=== PATIENT | female | born 1990 | race American Indian/Alaskan Native ===

== ENCOUNTER 2017-10-06 12:09 | Outpatient (CLI) | payer BC ==
[2017-10-06 12:18] LABS: Basophils % (Auto) 1.2 % (0.0-1.8); Eosinophils % (Auto) 1.5 % (0.0-4.3); Hemoglobin 11.7 gm/dl (10.1-14.3); Mean Corpuscular HGB Conc 33 % (30-34); Mean Corpuscular Volume 77 fl (79-97); Platelet Count 226 K/mm3 (140-440); Red Blood Count 4.68 M/mm3 (3.65-5.03); White Blood Count 3.8 K/mm3 (4.5-11.0)
[2017-10-06 12:19] LABS: Mean Corpuscular Hemoglobin 25 pg (28-32); Red Cell Distribution Width 20.4 % (13.2-15.2)
[2017-10-06 12:43] LABS: Albumin 3.3 g/dL (3.9-5); Albumin/Globulin Ratio 1.2 %; Calcium 8.9 mg/dL (8.4-10.2); Chloride 96.2 mmol/L (98-107); Potassium 4.3 mmol/L (3.6-5.0); Total Protein 6.1 g/dL (6.3-8.2)
== END 2017-10-06 12:10 | disposition home or self-care (01) ==
LOC: LABHHL 12:09
PROVIDERS: ATTEND Internal Medicine Cardiovascular Disease
DX: I50.22 Chronic systolic (congestive) heart failure (principal); R18.8 Other ascites; Z94.1 Heart transplant status
CPT/HCPCS: 36415; 80053; 83735; 85025